=== PATIENT | male | born 1955 | race Caucasian/White ===

== ENCOUNTER 2023-10-17 13:13 | Observation (INO) ==
[2023-10-17 13:39] LABS: Basophils # (auto) 0.02 K/uL (0.00-0.20); Basophils % (auto) 0.2 %; Eosinophils # (auto) 0.06 K/uL (0.00-0.50); Eosinophils % (auto) 0.5 %; Hematocrit (blood only) 45.3 % (42.0-52.0); Hemoglobin 15.6 g/dl (14.0-18.0); Immature Granulocytes # (auto) 0.04 K/uL (0.01-0.20); Immature Granulocytes % (auto) 0.3 %; Lymphocytes # (auto) 0.94 K/uL (1.20-3.40); Lymphocytes % (auto) 7.9 %; Mean Corpuscular Hemoglobin 30.1 pg (25.0-34.0); Mean Corpuscular Hgb Conc 34.4 g/dL (32.0-36.0); Mean Corpuscular Volume 87.3 fL (80.0-100.0); Mean Platelet Volume 9.9 fL (9.4-12.4); Monocytes # (auto) 0.69 K/uL (0.11-0.59); Monocytes % (auto) 5.8 %; Neutrophils # (auto) 10.09 K/uL (1.40-6.50); Neutrophils % (auto) 85.3 %; Platelet Count 244 K/uL (130-400); RDW Coefficient of Variation 12.8 % (11.5-14.5); RDW Standard Deviation 40.5 fL (36.4-46.3); Red Blood Count 5.19 M/uL (4.70-6.10); White Blood Count 11.84 K/ul (4.8-10.8)
--- NOTE | 2023-10-17 13:43 | Emergency Department Note ---
Impression & Plan Atrial flutter, Chest pain, rule out acute myocardial infarction, Hypertension, S/P ablation of atrial fibrillation ED Provider Note NAME: KAIN CASEY AGE: 68 SEX: M : 1955 ARRIVES VIA: Walk-In INFORMANT: Patient ED PROVIDER(S): Sb Lopez DO CHIEF COMPLAINT: shortness of breath HPI: Patient is a 68-year-old male who presents to the ER for shortness of breath. Symptoms started yesterday and he notes he has a past medical history of A-fib with a previous ablation back in 2019. Patient notes that he has no chest pain but does have exertional dyspnea. Denies any belly pain, nausea, vomiting, or diarrhea. No dysuria, urgency, or frequency. He notes he struggles with walking any distance now and he has to stop to catch his breath with anything more than about 20 feet. ADDITIONAL HISTORY OBTAINED: Per HPI Chronic Medical/Social Conditions Affecting Care: Per HPI PAST MEDICAL HISTORY:See Below PAST SURGICAL HISTORY:See Below FAMILY HISTORY:See Below SOCIAL HISTORY:See Below HOME MEDICATIONS:See Below ALLERGIES:See Below VITALS:See Below PHYSICAL EXAMINATION: GENERAL: Sitting up in bed, alert, well appearing, well nourished, no distress, non-toxic EYE EXAM: normal conjunctiva. OROPHARYNX: no exudate, no erythema, lips, buccal mucosa, and tongue normal and mucous membranes are moist NECK: supple, no nuchal rigidity, no adenopathy, non-tender LUNGS: Clear to auscultation. Normal chest wall mechanics HEART: no murmurs, S1 normal and S2 normal ABDOMEN: abdomen soft, non-tender, normo-active bowel sounds, no masses, no rebound or guarding. UPPER EXTREMITIES: upper extremities are grossly normal. LOWER EXTREMITIES: No pitting edema. NEURO EXAM: Normal sensorium, cranial nerves II-XII grossly intact, normal speech, no gross weakness of arms, no gross weakness of legs. MEDICAL DECISION MAKING: Patient is a 68-year-old male who presents ER for the above-stated complaint. IV was established blood work was obtained. Labs show mild leukocytosis of 11.8. No significant anemia. INR unremarkable. BMP with mild hypokalemia at 3.4. LFTs bilirubin was unremarkable. Troponin was negative. Chest x-ray was clean. Patient last ate at 9 AM and drink just prior to coming in he had a sip of water. He has no other medical problems other than the A-fib and flutter and previous ablation and hypertension. With the intermittent chest pain he was given aspirin and nitro. He was admitted to the hospitalist. Patient was seen by cardiology Dr. Barbour who requested IR assistance for sedation for cardioversion as patient has been anticoagulated appropriately and would prefer to be shocked. I discussed the risk and benefits at bedside with the patient and he was agreeable to sedation. Patient was given 10 of etomidate and sedation was for a total of 11 minutes. He was shocked twice during this. He remained on nonrebreather. He was never apneic or hypoxic. He after the first shock converted to A-fib. He was then shocked again and there is no conversion to sinus rhythm. He was mated to the hospitalist for further workup. Consults/Care Managements Discussions: Per [facility] Triage Nursing notes reviewed. Limited review of prior medical records performed Vital Signs: reviewed and remarkable for tachy Differential diagnosis: Cardiac ischemia, aortic dissection, pulmonary embolism, pneumothorax, pneumonia, pericarditis, myocarditis, esophageal rupture, GERD, cholecystitis, pancreatitis, musculoskeletal, as well as other pathologies. ER treatment provided: See below Diagnostics interpreted by me include EKG and cardiac monitoring as listed below: -Cardiac Monitoring: An order was placed for continuous cardiac monitoring. The monitor shows a rate of 102 with AFIB rhythm. -ECG: Atrial flutter rate of [address] wave changes QTc 457 EKG #2 Atrial flutter rate [address] wave changes in the inferior and lateral leads QTc 486 EKG #3 Atrial flutter variable block rate of 79 Normal axis No PVCs Nonspecific ST wave changes -Laboratory studies:Interpreted by me as stated above in MDM and shown below. Imaging studies: Xrays: As interpreted by me: Portable AP upright 1 view of the chest shows no focal infiltrate CTs show: none Procedures:EM PROCEDURE NOTE- PROCEDURAL SEDATION Sedation Level: Moderate PRIOR TO THE PROCEDURE THE FOLLOWING INFORMATION WAS VERIFIED: Procedure/Indication: Cardioversion Verify Correct Patient: Yes Verify Correct Site: Yes Verify Correct Procedure: Yes Patient has been NPO for 8 hours Airway Assessment: Normal anatomy ASA Physical Status: 2 Procedure sedation was discussed with the patient. Risks and benefits were explained with the possible risks including but not limited to hypotension, allergic reaction, vomiting, pneumonia, loss of respiratory effort, cardiac arrest, and emergence reaction. PROCEDURE NOTE: Preparation for the sedation procedure included: air marshal, IV access, pulse oxymetry, ETCO2 monitor, oxygen, suction and ambu bag. Sedation was accomplished using etomidate 10 mg IV. I provided anesthesia care for this patient for 11 minutes. Tugboat Dispatcher/Stonecutter Assistant: Sb Lopez DO. Complication(s) during the procedure: None Mental status post procedure: Response to verbal stimuli - Appropriate Disposition See nurses record for monitoring/vital signs Alert prior to discharge Critical Care: None Past Med/Surg History Problem List (Updated 10/17/23 @ 19:00 by Sb Lopez DO) S/P ablation of atrial fibrillation (Acute) Hypertension (Acute) Atypical chest pain Chest pain, rule out acute myocardial infarction (Acute) Atrial flutter (Acute) Medical History History of atrial fibrillation Social History Smoking Status: Never smoker Hx Alcohol Use: Yes Alcohol type: beer Hx Substance Use: No Preferred Language: Portuguese Collar Sewer Required: No Beliefs That Will Affect Care: None Current Living Situation: Spouse Feels Safe at Home: Yes Assistive Devices: CPAP Allergies Allergies Allergy/AdvReac Type Severity Reaction Status Date / Time codeine AdvReac Nausea Verified 10/17/23 15:46 lisinopril AdvReac Cough Verified 10/17/23 15:46 Home Meds Home Medications Medication Instructions Recorded Confirmed apixaban 5 mg tablet (Eliquis) 5 mg PO BID 10/17/23 10/17/23 chlorthalidone 25 mg tablet 25 mg PO QAM 10/17/23 10/17/23 losartan 100 mg tablet 100 mg PO HS 10/17/23 10/17/23 magnesium 250 mg tablet 250 mg PO HS 10/17/23 10/17/23 rdqhxhjwsqug-nmmxpcbv-iwabjl tablet 1 tab PO DAILY 10/17/23 10/17/23 nifedipine 30 mg tablet,extended 30 mg PO DAILY 10/17/23 10/17/23 release omega 5-dzj-pod-fish oil 1,200 mg 1 cap PO HS 10/17/23 10/17/23 (144 mg-216 mg) capsule (Fish Oil) rosuvastatin 5 mg tablet 5 mg PO HS 10/17/23 10/17/23 sertraline 50 mg tablet 50 mg PO HS 10/17/23 10/17/23 valacyclovir 1 gram tablet 1,000 mg PO TID PRN Cold Sores 10/17/23 10/17/23 Results & Data (ED) Vital Signs Vital Signs - 24 hr 10/17/23 13:15 10/17/23 13:42 10/17/23 14:36 Temperature 36.4 C L Temperature Source Temporal Artery Scan Pulse Rate 108 H 92 H 84 Pulse Rate from SpO2 Sensor 81 Respiratory Rate 20 16 Respiratory Effort / Characteristics Spontaneous Labored Respiratory Depth Normal Respiratory Pattern Regular Blood Pressure 112/77 125/91 Blood Pressure Mean 88 102 Pulse Oximetry 99 97 Oxygen Delivery Method Room Air Sepsis Recent Fever Within 48 Hours No Sepsis New/Unexplained Change in Mental Status N/A Sepsis Action Taken by Nursing No Action Required Laboratory Data 10/17/23 13:23 10/17/23 13:23 Lab Results 10/17/23 Range/Units 13:23 WBC 11.84 H (4.8-10.8) K/ul RBC 5.19 (4.70-6.10) M/uL Hgb 15.6 (14.0-18.0) g/dl Hct 45.3 (42.0-52.0) % MCV 87.3 (80.0-100.0) fL MCH 30.1 (25.0-34.0) pg MCHC 34.4 (32.0-36.0) g/dL RDW Std Deviation 40.5 (36.4-46.3) fL RDW Coeff of Daniel 12.8 (11.5-14.5) % Plt Count 244 (130-400) K/uL MPV 9.9 (9.4-12.4) fL Immature Gran % (Auto) 0.3 % Neut % (Auto) 85.3 % Lymph % (Auto) 7.9 % [place] % (Auto) 5.8 % Eos % (Auto) 0.5 % Baso % (Auto) 0.2 % Neut # (Auto) 10.09 H (1.40-6.50) K/uL Lymph # (Auto) 0.94 L (1.20-3.40) K/uL [place] # (Auto) 0.69 H (0.11-0.59) K/uL Eos # (Auto) 0.06 (0.00-0.50) K/uL Baso # (Auto) 0.02 (0.00-0.20) K/uL Immature Gran # (Auto) 0.04 (0.01-0.20) K/uL PT 11.7 (9.0-12.0) Seconds INR 1.1 (0.9-1.1) APTT 28 (21-31) Seconds PTT Ratio 1.0 Sodium 137 (136-145) mmol/L Potassium 3.4 L (3.5-5.1) mmol/L Chloride 101 (98-107) mmol/L Carbon Dioxide 28 (21-32) mmol/L Anion Gap 8 (3-11) BUN 24 H (6-23) mg/dl Creatinine 1.25 (0.6-1.4) mg/dl Est Cr Clr Drug Dosing 81.4 ml/min Est GFR ( Amer) 68.6 ml/min Est GFR (Non-Af Amer) 59.2 ml/min BUN/Creatinine Ratio 19.2 (10-20) Glucose 166 H (70-99(Fasting)) mg/dl Calcium 9.3 (8.6-10.3) mg/dl Magnesium 2.0 (1.7-2.4) mg/dl Total Bilirubin 0.7 (0.2-1.0) mg/dl AST 19 (13-39) U/L ALT 23 (7-52) U/L Alkaline Phosphatase 44 (34-104) U/L Troponin I High Sens 3.1 (0-20) pg/ml Total Protein 7.4 (6.0-8.3) gm/dl Albumin 4.7 (3.4-5.0) gm/dl Globulin 2.7 (2.5-4.0) gm/dl Albumin/Globulin Ratio 1.7 (0.9-2) Administered Medications Discontinued Medications Aspirin (Aspirin Chew 324 Mg) 324 mg PO NOW STA Stop: 10/17/23 14:35 Last Admin: 10/17/23 14:37 Dose: 324 mg Documented By: Etomidate (Etomidate 2 Mg/Ml 20 Ml Vial) Confirm Administered Dose 40 mg IV .STK-MED ONE Stop: 10/17/23 17:09 Last Admin: 10/17/23 18:49 Dose: Not Given Documented By: PURNIMA Sodium Chloride (Nss) 1,000 mls @ 999 mls/hr IV .Q1H1M ONE Stop: 10/17/23 14:43 Last Infusion: 10/17/23 15:10 Dose: Infused Documented By: Admin: 10/17/23 13:52 Dose: 999 mls/hr Documented By: SONY Potassium Chloride (K [place] / Wtr) 10 meq in 100 mls @ 100 mls/hr IV Q1H [place] Stop: 10/17/23 18:14 Last Admin: 10/17/23 18:49 Dose: 100 mls/hr Documented By: Infusion: 10/17/23 18:49 Dose: Infused Documented By: Infusion: 10/17/23 17:16 Dose: 0 mls/hr Documented By: Admin: 10/17/23 16:20 Dose: 100 mls/hr Documented By: YENIFER Miscellaneous Information (Patient's Allergy Info Needs Entered) 1 each N/A NOW STA Stop: 10/17/23 14:50 Last Admin: 10/17/23 15:47 Dose: 1 each Documented By: YENIFER Nitroglycerin (Nitroglycerin Sl 0.4 Mg/Tab Tab) 0.4 mg SL NOW STA Stop: 10/17/23 14:35 Last Admin: 10/17/23 14:39 Dose: 0.4 mg Documented By: Potassium Chloride (Potassium Chloride Crtab 20 Meq Tabcr) 20 meq PO NOW STA Stop: 10/17/23 14:47 Last Admin: 10/17/23 15:34 Dose: Not Given Documented By: YENIFER Imaging Data Radiologist's Impression: Chest X-Ray 10/17/23 13:21 XR chest 1V portable CLINICAL HISTORY: Chest pain, nonspecific COMPARISON STUDY: No previous studies for comparison. FINDINGS: Lung volumes are normal. Lungs are clear. There is no pneumothorax or pleural effusion. Mild cardiomegaly. Mediastinal contours are normal. There is no evidence for pulmonary edema. IMPRESSION: No acute cardiopulmonary findings. Mild cardiomegaly. ACT 112: Negative or not required by law. Electronically signed by: Shorty Fritz M.D. 10/17/2023 2:32 PM Discharge Plan Visit Data Chief Complaint: Cardiac Assessment Stated Complaint: LIGHTHEADED, SOB, HIGH HR, NAUSEA ED Provider: Sb Lopez Discharge Problem: Atrial flutter, Chest pain, rule out acute myocardial infarction, Hypertension, S/P ablation of atrial fibrillation Patient Disposition: Admitted As Inpatient Discharge Instructions Interventions: ED Discharge Assessment Last Done: 10/17/23 17:59 Discharge Problem: Atrial flutter Qualifiers: Atrial flutter type: unspecified Qualified Code(s): I48.92 - Unspecified atrial flutter
[2023-10-17 13:48] LABS: INR 1.1 (0.9-1.1); Partial Thromboplastin Time 28 Seconds (21-31); Prothrombin Time 11.7 Seconds (9.0-12.0)
[2023-10-17] MEDS: SODIUM CHLORIDE 0.9% 1,000 ML IV ONE (13:52)
[2023-10-17 13:55] LABS: Albumin Globulin Ratio 1.7 (0.9-2); Albumin Level 4.7 gm/dl (3.4-5.0); BUN Creatinine Ratio 19.2 (10-20); Bilirubin,Total 0.7 mg/dl (0.2-1.0); Calcium 9.3 mg/dl (8.6-10.3); Creatinine Clr Calc Pharmacy 81.4 ml/min; Est GFR (African American) 68.6 ml/min; Est GFR (Non-African American) 59.2 ml/min; Globulin 2.7 gm/dl (2.5-4.0); Potassium 3.4 mmol/L (3.5-5.1); Total Protein 7.4 gm/dl (6.0-8.3)
[2023-10-17 14:03] LABS: Troponin I High Sensitivity 3.1 pg/ml (0-20)
--- NOTE | 2023-10-17 14:34 | XRay Report ---
XR chest 1V portable CLINICAL HISTORY: Chest pain, nonspecific COMPARISON STUDY: No previous studies for comparison. FINDINGS: Lung volumes are normal. Lungs are clear. There is no pneumothorax or pleural effusion. Mil d cardiomegaly. Mediastinal contours are normal. There is no evidence for pulmonary edema. IMPRESSION: No acute cardiopulmonary findings. Mild cardiomegaly. ACT 112: Negative or not required by law. Electronically signed by: Shorty Fritz M.D. 10/17/2023 2:32 PM
[2023-10-17] MEDS: ASPIRIN CHEW 324 MG PO STA (14:37)
[2023-10-17] MEDS: NITROGLYCERIN SL 0.4 MG/TAB TAB SL STA (14:39)
--- NOTE | 2023-10-17 15:14 | History & Physical Report ---
Date of Service October 17, 2023 Assessment & Plan (1) Atrial flutter: Plan: Appears well rate controlled by significantly symptomatic (see below for possible coronary artery disease) Already on anticoagulation for > 4 weeks consistently therefore discussed care with Dr Barbour who will discuss cardioversion with him Last ate 9am, last drank @ midday TTE Aim K > 4, Mg > 2 Consult cardiology (2) Chest pain, rule out acute myocardial infarction: Plan: No CAD history Chest pain most like due to atrial flutter rhythm even though well rate controlled However only occurred at rest since he came to the ER and relieved with nitroglycerin therefore will need to bring patient over night for observation TTE Trend troponins (3) History of atrial fibrillation: Plan HTN - continue losartan, chlorthalidone and nifedipine Hyperlipidemia - continue rosuvastatin Paroxysmal atrial fibrillation - continue Eliquis VTE Prophylaxis - Eliquis Diet - NPO pending cardioversion decision Disposition - observation to PCU Admission and Anticipated Discharge Date Admission Date: October 17, 2023 History of Present Illness Chief Complaint: Chest pressure, shortness of breath on exertion Primary Care Provider: NO PCP [place] Crooks is a 68 year old male with history of atrial fibrillation who presents to the ER with shortness of breath on exertion and chest pressure. Symptoms started yesterday with shortness of breath on exertion. Today he started getting mild chest pressure on exertion with associated increased heart rate therefore decided to come to the ER. While in the ER he started getting some chest pressure at rest without radiation, mild, substernal, no associated diaphoresis/nausea/shortness of breath at rest. EKG in the ER showed atrial flutter and despite good rate control appears to be symptomatic. He has a notable history of atrial fibrillation where he was asymptomatic. Successful ablation occurred in 2020 and he does not think he has been in a. fib since then. He has remained on Eliquis indefinitely and not missed any doses in the last 4 weeks. Allergies Allergy/AdvReac Type Severity Reaction Status Date / Time codeine AdvReac Nausea Verified 10/17/23 15:46 lisinopril AdvReac Cough Verified 10/17/23 15:46 Home Medications Medication Instructions Recorded Confirmed Type apixaban 5 mg tablet (Eliquis) 5 mg PO BID 10/17/23 10/17/23 History chlorthalidone 25 mg tablet 25 mg PO QAM 10/17/23 10/17/23 History losartan 100 mg tablet 100 mg PO HS 10/17/23 10/17/23 History magnesium 250 mg tablet 250 mg PO HS 10/17/23 10/17/23 History sdhnfpfwugnr-kibzeoda-xlozvv tablet 1 tab PO DAILY 10/17/23 10/17/23 History nifedipine 30 mg tablet,extended 30 mg PO DAILY 10/17/23 10/17/23 History release omega 2-cnc-rtz-fish oil 1,200 mg 1 cap PO HS 10/17/23 10/17/23 History (144 mg-216 mg) capsule (Fish Oil) rosuvastatin 5 mg tablet 5 mg PO HS 10/17/23 10/17/23 History sertraline 50 mg tablet 50 mg PO HS 10/17/23 10/17/23 History valacyclovir 1 gram tablet 1,000 mg PO TID PRN Cold Sores 10/17/23 10/17/23 History Past Med/Surg History Problem List (Updated 10/17/23 @ 19:00 by Sb Lopez DO) S/P ablation of atrial fibrillation (Acute) Hypertension (Acute) Atypical chest pain Chest pain, rule out acute myocardial infarction (Acute) Atrial flutter (Acute) Medical History History of atrial fibrillation Social History Smoking Status: Never smoker Hx Alcohol Use: Yes Alcohol type: beer Hx Substance Use: No Preferred Language: Barbadian Formulation Chemist Required: No Beliefs That Will Affect Care: None Current Living Situation: Spouse Feels Safe at Home: Yes Assistive Devices: CPAP Review of Systems Review of Systems: All systems reviewed & are unremarkable except as noted in HPI & below Physical Exam Constitutional: WD/WN, vitals as above Eyes: + anicteric sclerae; normal pupil size ENMT: external ear and nose normal, oropharynx normal Respiratory: normal respiratory effort, lungs clear to auscultation Cardiovascular: Rate/Rhythm: regular rhythm and + tachycardic Heart Sounds: no murmur Extremities: normal capillary refill; no calf tenderness and no pedal edema Gastrointestinal (Abdomen): normal bowel sounds, soft, nontender, no hepatosplenomegaly Musculoskeletal: no cyanosis or clubbing, extremities motor strength 5/5 Skin: no rashes, warm and dry Neurologic: moves all extremities and awake; not confused Psychiatric: A+Ox3, euthymic affect Results & Data Results & Data Vital Signs (Past 12 Hours) Vital Signs Temp Pulse Resp BP Pulse Ox O2 Del Method 10/17/23 14:36 84 16 125/91 97 10/17/23 13:42 92 H 10/17/23 13:15 36.4 C L 108 H 20 112/77 99 Room Air Laboratory Results Abnormal lab results 10/17/23 Range/Units 13:23 WBC 11.84 H (4.8-10.8) K/ul Neut # (Auto) 10.09 H (1.40-6.50) K/uL Lymph # (Auto) 0.94 L (1.20-3.40) K/uL [place] # (Auto) 0.69 H (0.11-0.59) K/uL Potassium 3.4 L (3.5-5.1) mmol/L BUN 24 H (6-23) mg/dl Glucose 166 H (70-99(Fasting)) mg/dl Diagnostic Findings XR chest 1V portable CLINICAL HISTORY: Chest pain, nonspecific COMPARISON STUDY: No previous studies for comparison. FINDINGS: Lung volumes are normal. Lungs are clear. There is no pneumothorax or pleural effusion. Mild cardiomegaly. Mediastinal contours are normal. There is no evidence for pulmonary edema. IMPRESSION: No acute cardiopulmonary findings. Mild cardiomegaly. Medications Administered ER Medications Given: NSS 1L bolus Aspirin 324mg PO Nitroglycerin 0.4mg SL ECG Rate (beats per minute): 95 Rhythm: atrial flutter and AV dissociation Findings: + RBBB (incomplete) Comparison ECG Date: no prior available Code Status & VTE Plan Code Status Full VTE Prophylaxis Plan VTE Prophylaxis will be ordered: Yes PG Care Time/CCT Total # of Minutes Spent Total Time Spent with Patient: Total time spent is greater than 50% in coordination of care (as documented) at patient's floor/unit and/or counseling patient: Coding Level of Care Code 25635 INT INP/OBS CARE 3/75MIN Diagnoses Atypical atrial flutter I48.4 Atrial flutter type: atypical Chest pain, rule out acute myocardial infarction R07.9 History of atrial fibrillation Z86.79 (1) Atrial flutter Atrial flutter type: atypical Qualified Code(s): I48.4 - Atypical atrial flutter
[2023-10-17] MEDS: POTASSIUM CHLORIDE CRTAB 20 MEQ TABCR PO STA (15:34)
[2023-10-17] MEDS: Patient's ALLERGY Info needs ENTERED STA (15:47)
--- NOTE | 2023-10-17 15:54 | Cardiology Consultation ---
Date of Consultation October 17, 2023 Assessment & Plan (1) Atrial flutter: (2) Atypical chest pain: (3) History of atrial fibrillation: (4) Hypertension: (5) S/P ablation of atrial fibrillation: Plan ASSESSMENT/PLAN: 1. Atrial flutter appears to be symptomatic and symptoms correlate with change of his heart rate on his smart phone. Diagnosis discussed with him. Discussed potential treatment strategies. Given that he is symptomatic, recommend that we try to reestablish sinus rhythm. Discussed cardioversion. Risk and benefits discussed in detail. He would like to proceed. Emergency department provider, Dr. Lopez, was willing to provide sedation. He has been on therapeutic anticoagulation therapy without interruption for at least 4 weeks. 2. Atrial fibrillation history s/p ablation (2020): He reports that he was completely asymptomatic with A-fib in the past. Has continued with anticoagulation therapy. Has not been on rate controlling medications given bradycardia in the past. 3. Hypertension: Blood pressure acceptable. Continue home medications. 4. Chest pain: Atypical and that it occurred at rest despite recent activity. Normal LV systolic function on preliminary echo interpretation. Recommend serial troponin levels, negative x 2 thus far but the first was before his chest discomfort occurred. Chest pain may be due to the atrial flutter itself. Continue to monitor for now. Repeat ECG. 5. Disposition: Cardioversion is being planned for this evening. Serial troponins given chest discomfort that responded to nitroglycerin. Close follow- up with his primary canvas cutter machine with [facility]. Patient care discussed with Dr. Cheng of the admitting hospitalist service and Dr. Lopez of the ER. Highly complex medical issues. Addendum: Cardioversion completed and atrial flutter converted to atrial fibrillation. Attempted cardioversion for atrial fibrillation was not successful. Reassess symptoms overnight and tomorrow with further plans pending symptoms/heart rate. N.p.o. after midnight in case further procedures to be done tomorrow. History of Present Illness Reason for Consultation: chest pain and atrial flutter Requesting Physician: Dr. Cheng Attending Physician: Dr. Cheng History of Present Illness Mr. Crooks is a very pleasant 68-year-old gentleman with a history significant for atrial fibrillation s/p afib ablation (July 2020 [facility]) and hypertension. He presented to the ER on 10/17/2023 with lightheadedness, dizziness, nausea, and significantly reduced exercise tolerance with inclines. He is at his camp at [facility] and noted yesterday that his heart rate was 113 bpm on his smart watch. His heart rate is typically in the 60s. His heart rate remained elevated while in bed but improved. He was asymptomatic at that time until today when he had the symptoms described above while hiking. He presented to the ER and was noted to be in atrial flutter with reasonable ventricular rates. While in bed, he had a substernal chest pressure and then a chest pressure that went from left to right across his chest. It resolved with nitroglycerin x 1 and 324 mg of aspirin. He has not had chest discomfort like that prior and denies any exertional chest discomfort. He had a cardiac catheterization in 2008 with minimal CAD, which she described as 10% blockage. In 2019, he was diagnosed with atrial fibrillation but was completely asymptomatic. It was detected by his [facility] canvas cutter machine, Dr. Leah Nair (office [phone]). He recalls having cardioversion approximately 7 times but states that cardioversions had been unsuccessful. He was on Tikosyn for some time and then eventually underwent ablation in July 2020. He has remained on Eliquis indefinitely and has not missed any doses in the past 4 weeks. He states that his heart rate is typically on the lower end and therefore has not been on any rate controlling medications. He denies stroke, diabetes, heart failure. He denies syncope, edema, or bleeding such as melena, hematochezia, or hematuria. Review of systems: As above. Review of systems otherwise negative/unremarkable. Family history: Father had CAD in his 60s, atrial fibrillation and stroke. Mother had CAD and at 64. Brother had A-fib and stroke x 2. Social history: Denies tobacco or drug abuse. Rare alcohol. and lives with his in [place] and have at home in [facility], to be near grandchildren. They have 2 daughters. 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 His was present at the bedside. Allergies Allergy/AdvReac Type Severity Reaction Status Date / Time codeine AdvReac Nausea Verified 10/17/23 15:46 lisinopril AdvReac Cough Verified 10/17/23 15:46 Home Medications Medication Instructions Recorded Confirmed Type apixaban 5 mg tablet (Eliquis) 5 mg PO BID 10/17/23 10/17/23 History chlorthalidone 25 mg tablet 25 mg PO QAM 10/17/23 10/17/23 History losartan 100 mg tablet 100 mg PO HS 10/17/23 10/17/23 History magnesium 250 mg tablet 250 mg PO HS 10/17/23 10/17/23 History zvubrtnwjvmt-uliiqxoj-cpgcer tablet 1 tab PO DAILY 10/17/23 10/17/23 History nifedipine 30 mg tablet,extended 30 mg PO DAILY 10/17/23 10/17/23 History release omega 8-bor-wxy-fish oil 1,200 mg 1 cap PO HS 10/17/23 10/17/23 History (144 mg-216 mg) capsule (Fish Oil) rosuvastatin 5 mg tablet 5 mg PO HS 10/17/23 10/17/23 History sertraline 50 mg tablet 50 mg PO HS 10/17/23 10/17/23 History valacyclovir 1 gram tablet 1,000 mg PO TID PRN Cold Sores 10/17/23 10/17/23 History Problem List S/P ablation of atrial fibrillation Hypertension Atypical chest pain Chest pain, rule out acute myocardial infarction Atrial flutter Patient History Medical History History of atrial fibrillation Social History Smoking Status: Never smoker Hx Substance Use: No Preferred Language: Cymro Feels Safe at Home: Yes Physical Exam Physical Exam: Gen.: No acute distress. Alert and oriented. HEENT: Anicteric sclera. Neck: No JVD. No bruits. Normal carotid upstrokes bilaterally. Cardiac: Irregularly irregular. Normal rate. Normal S1-S2. No murmurs, rubs, or gallops. Pulmonary: Clear to auscultation bilaterally without wheezes, rales, or rhonchi. Abdomen: Soft, nontender, nondistended, with normoactive bowel sounds. No bruits noted. Extremities: 2+ radial pulses bilaterally. 2+ posterior tibialis pulses bilaterally. No edema or cyanosis. Psychiatric: Affect appears appropriate. Chest: Nontender to palpation. Results & Data Vital Signs (Past 12 Hours) Vital Signs Temp Pulse Resp BP Pulse Ox O2 Del Method 10/17/23 14:36 84 16 125/91 97 10/17/23 13:42 92 H 10/17/23 13:15 36.4 C L 108 H 20 112/77 99 Room Air Laboratory Results Laboratory Results - last 24 hr 10/17/23 13:23 WBC 11.84 H RBC 5.19 Hgb 15.6 Hct 45.3 MCV 87.3 MCH 30.1 MCHC 34.4 RDW Std Deviation 40.5 RDW Coeff of Daniel 12.8 Plt Count 244 MPV 9.9 Immature Gran % (Auto) 0.3 Neut % (Auto) 85.3 Lymph % (Auto) 7.9 [place] % (Auto) 5.8 Eos % (Auto) 0.5 Baso % (Auto) 0.2 Neut # (Auto) 10.09 H Lymph # (Auto) 0.94 L [place] # (Auto) 0.69 H Eos # (Auto) 0.06 Baso # (Auto) 0.02 Immature Gran # (Auto) 0.04 PT 11.7 INR 1.1 APTT 28 PTT Ratio 1.0 Sodium 137 Potassium 3.4 L Chloride 101 Carbon Dioxide 28 Anion Gap 8 BUN 24 H Creatinine 1.25 Est Cr Clr Drug Dosing 81.4 Est GFR ( Amer) 68.6 Est GFR (Non-Af Amer) 59.2 BUN/Creatinine Ratio 19.2 Glucose 166 H Calcium 9.3 Magnesium 2.0 Total Bilirubin 0.7 AST 19 ALT 23 Alkaline Phosphatase 44 Troponin I High Sens 3.1 Total Protein 7.4 Albumin 4.7 Globulin 2.7 Albumin/Globulin Ratio 1.7 Diagnostic Findings Labs reviewed and notable for normal high-sensitivity troponin x 1, mild hypokalemia, mildly abnormal renal function, normal magnesium, normal transaminase levels, mild leukocytosis, normal hemoglobin. ECG personally reviewed: ECG 10/17/2023 at 1323: Atrial flutter 95 bpm. Incomplete RBBB. Nonspecific ST/T wave abnormality. ECG 10/17/2023 at 1419: Atrial flutter 84 bpm. Incomplete RBBB. Nonspecific ST abnormality. Chest x-ray 10/17/2023: No acute cardiopulmonary findings per radiology. Preliminary echo review from 10/17/2023: Normal LV systolic function. Formal review to follow. Medications Administered Current Inpatient Medications Potassium Chloride (K [place] / Wtr) 10 meq in 100 mls @ 100 mls/hr IV Q1H [place] Stop: 10/17/23 17:44 PG Care Time/CCT Total # of Minutes Spent Total Time Spent with Patient: Total time spent is greater than 50% in coordination of care (as documented) at patient's floor/unit and/or counseling patient: Coding Level of Care Code 13204 INT INP/OBS CARE 3/75MIN Diagnoses Atypical atrial flutter I48.4 Atrial flutter type: atypical Atypical chest pain R07.89 History of atrial fibrillation Z86.79 Hypertension I10 S/P ablation of atrial fibrillation Z98.890; Z86.79 (1) Atrial flutter Atrial flutter type: atypical Qualified Code(s): I48.4 - Atypical atrial flutter
[2023-10-17] MEDS: POTASSIUM CHLORIDE / WTR 10 MEQ/100 ML PLCT IV SCH (16:20)
--- NOTE | 2023-10-17 18:16 | Cardioversion ---
Date of Service October 17, 2023 PG Electrical Cardioversion Rp Electrical Cardioversion Report Procedure: DC cardioversion Indication: Symptomatic atrial flutter Anticoagulation: Therapeutic Eliquis for at least 4 weeks without interruption Antiarrhythmic therapy: None Informed consent: Obtained Sedation: Provided by Dr. Lopez of the emergency department Timeout: Performed Procedural details: Once sufficiently sedated, 70 J were delivered in a synchronized fashion which converted atrial flutter to atrial fibrillation with normal ventricular rate. While still sedated, 200 J were delivered in a synchronized fashion, but atrial fibrillation remained. Telemetry waveform b ecame more difficult to interpret and rather than repeat cardioversion, decision was made to end the procedure and reevaluate. He tolerated the procedure well without known complication at the time of this note. Plan: 1. Atrial fibrillation confirmed on ECG. He was asymptomatic when waking up from sedation. 2. Continue Eliquis without interruption for at least 4 weeks although indefinite anticoagulation appears to be indicated. 3. Reassess for symptoms while in atrial fibrillation to determine next course of action. Coding Level of Care Code 68314 CARDIOVERSION, ELECTIVE Additional Codes Electrical Cardioversion Report ([id number])
[2023-10-17] MEDS: ETOMIDATE 2 MG/ML 20 ML VIAL IV ONE (18:49)
--- NOTE | 2023-10-17 19:02 | Emergency Department Note ---
Pre Sedation Assessment Vital Signs Temp Pulse Resp BP Pulse Ox O2 Del Method 10/17/23 14:36 84 16 125/91 97 10/17/23 13:42 92 H 10/17/23 13:15 36.4 C L 108 H 20 112/77 99 Room Air Cardiovascular + S1 normal and + S2 normal Respiratory normal respiratory effort, lungs clear to auscultation Pre-Sedation Airway Assessment Smoking Status: Never smoker Hx Sleep Apnea: Yes Short, Thick Neck: No Thyromental Distance: > or= 3.5 Finger Breadths Oral Cavity: + WNL Mallampati Class: II ASA: ASA2 NPO Status Date of Last Intake of Fluids: 10/17/23 Time of Last Intake of Fluids: 13:00 Date of Last Intake of Solid Food: 10/17/23 Time of Last Intake of Solid Foods: 09:00 Procedure Planning Contraindications for Sedation: none Notes The planned sedation has been discussed with the patient. Informed Consent was obtained. I have identified the patient, determined the appropriateness of sedation and have assessed the patient immediately prior to the procedure. All medicine(s) and interventions are by my order.
--- NOTE | 2023-10-17 19:02 | Emergency Department Note ---
Post Sedation Assessment Vital Signs Temp Pulse Resp BP Pulse Ox O2 Del Method 10/17/23 14:36 84 16 125/91 97 10/17/23 13:42 92 H 10/17/23 13:15 36.4 C L 108 H 20 112/77 99 Room Air Recovery Score Activity: Moves 4 extremities Respiration: Deep Breath/Cough Circulation: +/-20% PreAnes Value Consciousness: Fully Awake Oxygen Saturation: > 92% On Room Air Post Anesthesia Score: 10 Discharge Sedation Level of Care: Fast Track Phase II Post Sedation Plan On clinical assessment, the patient appears to have tolerated the sedation without complications. Patient is recovering as anticipated. Patient will continue to be monitored by nursing and may be discharged when sedation discharge criteria are met per below protocol. Upon Completions of procedure up to 15 minutes continue every 5 minute vital signs and the P.A.R. score; then discharge to a Phase I or Fast Track to Phase II per the following guidelines: * Discharge Patient to appropriate Phase II area if PAR is 8 or greater or return to pre- procedure baseline. The post - procedure orders will be as directed. * If PAR score is less than 8 or not return to pre-procedure baseline then patient will follow Phase I monitoring till PAR is reached for Phase II. The Phase I may be done in procedure room or may call to secure a Phase I area. * If naloxone or flumazenil are used for reversal, hold in Phase I for continued monitoring from when last reversal dose was given for a minimum of 60 minutes or longer pending the nurse and/or physician discretion of patient condition before discharge to Phase II. Please call the Sedation Physician to re-evaluate and complete post-note for discharge to Phase II area. Do NOT discharge from procedure sedation or Phase 1 until post- sedation evaluation note is complete by procedure /sedation MD Sedation Discharge Instructions to be given to the patient at discharge to home. Sedation Data Sedation Times Sedation Start Date: 10/17/23 Sedation Start Time: 17:23 Sedation End Date: 10/17/23 Sedation End Time: 17:34 Total Sedation Time: 11 Procedure Times Procedure Start Time:: 17:24
[2023-10-17] MEDS: APIXABAN 5 MG TABLET PO SCH (21:08)
[2023-10-17] MEDS: SERTRALINE HCL 50 MG TABLET PO SCH (21:08)
[2023-10-17] MEDS: MAGNESIUM OXIDE 400 MG TAB PO SCH (21:08)
[2023-10-17] MEDS: ROSUVASTATIN CALCIUM 5 MG TAB PO SCH (21:08)
[2023-10-17] MEDS: LOSARTAN POTASSIUM 50 MG TAB PO SCH (21:08)
--- NOTE | 2023-10-17 22:03 | XCELERA ---
[id number] [id number]
[2023-10-18 06:29] LABS: Basophils # (auto) 0.01 K/uL (0.00-0.20); Basophils % (auto) 0.1 %; Eosinophils # (auto) 0.16 K/uL (0.00-0.50); Eosinophils % (auto) 2.2 %; Hematocrit (blood only) 39.8 % (42.0-52.0); Hemoglobin 13.8 g/dl (14.0-18.0); Immature Granulocytes # (auto) 0.02 K/uL (0.01-0.20); Immature Granulocytes % (auto) 0.3 %; Lymphocytes # (auto) 1.61 K/uL (1.20-3.40); Lymphocytes % (auto) 22.4 %; Mean Corpuscular Hemoglobin 29.9 pg (25.0-34.0); Mean Corpuscular Hgb Conc 34.7 g/dL (32.0-36.0); Mean Corpuscular Volume 86.3 fL (80.0-100.0); Mean Platelet Volume 10.1 fL (9.4-12.4); Monocytes # (auto) 0.73 K/uL (0.11-0.59); Monocytes % (auto) 10.1 %; Neutrophils # (auto) 4.67 K/uL (1.40-6.50); Neutrophils % (auto) 64.9 %; Platelet Count 205 K/uL (130-400); RDW Coefficient of Variation 12.9 % (11.5-14.5); RDW Standard Deviation 40.7 fL (36.4-46.3); Red Blood Count 4.61 M/uL (4.70-6.10)
[2023-10-18 06:55] LABS: BUN Creatinine Ratio 15.9 (10-20); Calcium 8.5 mg/dl (8.6-10.3); Chol HDL Ratio 2.4 (0-5); Creatinine Clr Calc Pharmacy 89.9 ml/min; Est GFR (African American) 77.5 ml/min; Est GFR (Non-African American) 66.9 ml/min; Magnesium 2.1 mg/dl (1.7-2.4); Potassium 4.1 mmol/L (3.5-5.1)
[2023-10-18 07:08] LABS: Estimated Average Glucose 117 mg/dl; Hemoglobin A1C 5.7 % (4.5-5.6)
[2023-10-18] MEDS: NIFEdipine EXTENDED REL 30 MG TABCR PO SCH (10:05)
[2023-10-18] MEDS: CHLORTHALIDONE 25 MG TAB PO SCH (10:05)
--- NOTE | 2023-10-18 10:47 | Electrocardiogram Report ---
Test Reason : Blood Pressure : */* mmHG Vent. Rate : 95 BPM Atrial Rate : 214 BPM P-R Int : * ms QRS Dur : 136 ms QT Int : 364 ms P-R-T Axes : * 44 -43 degrees QTcB Int : 457 ms Atrial flutter with variable A-V block Right bundle branch block Abnormal ECG No previous ECGs available Confirmed by Lam Barbour ([id number]) on 10/18/2023 10:47:44 AM Referred By: Confirmed By: Lam Barbour
--- NOTE | 2023-10-18 10:49 | Electrocardiogram Report ---
Test Reason : Blood Pressure : */* mmHG Vent. Rate : 84 BPM Atrial Rate : 86 BPM P-R Int : * ms QRS Dur : 136 ms QT Int : 412 ms P-R-T Axes : 92 13 -23 degrees QTcB Int : 486 ms Atrial flutter Right bundle branch block Possible Inferior infarct , age undetermined Cannot rule out Anterior infarct (cited on or before 17-Oct-2023) Abnormal ECG When compared with ECG of 17-Oct-2023 13:23, No significant change Confirmed by Lam Barbour ([id number]) on 10/18/2023 10:49:10 AM Referred By: Confirmed By: Lam Barbour
--- NOTE | 2023-10-18 10:50 | Cardiology Progress Note ---
Date of Service October 18, 2023 Assessment & Plan (1) Atrial flutter: (2) Atypical chest pain: (3) Hypertension: (4) S/P ablation of atrial fibrillation: (5) Paroxysmal atrial fibrillation: Plan ASSESSMENT/PLAN: 1. Atrial flutter: Was symptomatic. Underwent cardioversion on 10/17/2023, resulting in rate controlled atrial fibrillation. He inquired about atrial flutter recurring. If any recurrence, would consider atrial flutter ablation. Feels much better with resolution of atrial flutter. Continue anticoagulation for stroke risk reduction for at least 4 weeks, however indefinite anticoagulation seems appropriate at this time. 2. Atrial fibrillation s/p ablation (2020): Following cardioversion for atrial flutter, atrial fibrillation developed and did not convert with 200 J. He seems asymptomatic while in rate controlled atrial fibrillation. Discussed treatment options such as attempting another cardioversion, antiarrhythmic therapy, repeat ablation, or remaining in A-fib. Given that cardioversion was unsuccessful on 10/17/2023 and that he has had unsuccessful cardioversions in the past, did not recommend pursuing that currently as he is completely asymptomatic. Discussed following up with his primary theatrical rigger with [facility] soon after discharge to discuss long-term options. Continue anticoagulation for stroke risk reduction. 3. Hypertension: Blood pressure acceptable. No changes made at this time. 4. Chest pain: Atypical. Occurred at rest despite regular exertion. Likely related to atrial flutter as he was in atrial flutter at that time. No recurrence. High-sensitivity troponin negative x 4. 5. Disposition: If he is able to ambulate in the hallway without significant symptoms, can be discharged home from a cardiology perspective. Recommend close follow-up with his primary inspector aide/theatrical rigger through [facility]. He was asked to contact her office today to set up an appointment soon. Patient care communicated with primary hospitalist service and nursing staff. Any questions were answered. Admission and Anticipated Discharge Date Admission Date: October 17, 2023 Subjective Patient was seen earlier today. He feels very well. He feels better than on presentation. He denies chest pain, shortness of breath, syncope, near syncope, palpitations, edema, or bleeding. He had not yet ambulated in the hallway but was ambulating in his room without symptoms. His was seated at the bedside. Physical Exam Physical Exam: Gen.: No acute distress. Alert and oriented. HEENT: Anicteric sclera. Neck: No JVD. Cardiac: Irregularly irregular with normal rate. Normal S1-S2. No murmurs, rubs, or gallops. Pulmonary: Clear to auscultation bilaterally without wheezes, rales, or rhonchi. Abdomen: Soft, nontender, nondistended, with normoactive bowel sounds. No bruits noted. Extremities: 2+ radial pulses bilaterally. 2+ posterior tibialis pulses bilaterally. No edema or cyanosis. Psychiatric: Affect appears appropriate. Results & Data Vital Signs (Past 12 Hours) Vital Signs Temp Pulse Pulse Resp BP Pulse Ox O2 Del Method 10/18/23 07:30 50 L 10/18/23 07:16 36.6 C 58 L 19 117/75 96 Room Air 10/18/23 02:33 36.6 C 62 20 128/72 96 Room Air Laboratory Results Laboratory Results - last 24 hr 10/17/23 10/17/23 10/17/23 13:23 16:20 22:32 WBC 11.84 H RBC 5.19 Hgb 15.6 Hct 45.3 MCV 87.3 MCH 30.1 MCHC 34.4 RDW Std Deviation 40.5 RDW Coeff of Daniel 12.8 Plt Count 244 MPV 9.9 Immature Gran % (Auto) 0.3 Neut % (Auto) 85.3 Lymph % (Auto) 7.9 [place] % (Auto) 5.8 Eos % (Auto) 0.5 Baso % (Auto) 0.2 Neut # (Auto) 10.09 H Lymph # (Auto) 0.94 L [place] # (Auto) 0.69 H Eos # (Auto) 0.06 Baso # (Auto) 0.02 Immature Gran # (Auto) 0.04 PT 11.7 INR 1.1 APTT 28 PTT Ratio 1.0 Sodium 137 Potassium 3.4 L Chloride 101 Carbon Dioxide 28 Anion Gap 8 BUN 24 H Creatinine 1.25 Est Cr Clr Drug Dosing 81.4 Est GFR ( Amer) 68.6 Est GFR (Non-Af Amer) 59.2 BUN/Creatinine Ratio 19.2 Glucose 166 H Estimat Average Glucose Hemoglobin A1c Calcium 9.3 Magnesium 2.0 Total Bilirubin 0.7 AST 19 ALT 23 Alkaline Phosphatase 44 Troponin I High Sens 3.1 2.9 3.2 Total Protein 7.4 Albumin 4.7 Globulin 2.7 Albumin/Globulin Ratio 1.7 Triglycerides Cholesterol LDL Cholesterol, Calc VLDL Cholesterol, Calc HDL Cholesterol Cholesterol/HDL Ratio 10/18/23 06:00 WBC 7.20 RBC 4.61 L Hgb 13.8 L Hct 39.8 L MCV 86.3 MCH 29.9 MCHC 34.7 RDW Std Deviation 40.7 RDW Coeff of Daniel 12.9 Plt Count 205 MPV 10.1 Immature Gran % (Auto) 0.3 Neut % (Auto) 64.9 Lymph % (Auto) 22.4 [place] % (Auto) 10.1 Eos % (Auto) 2.2 Baso % (Auto) 0.1 Neut # (Auto) 4.67 Lymph # (Auto) 1.61 [place] # (Auto) 0.73 H Eos # (Auto) 0.16 Baso # (Auto) 0.01 Immature Gran # (Auto) 0.02 PT INR APTT PTT Ratio Sodium 140 Potassium 4.1 D Chloride 106 Carbon Dioxide 29 Anion Gap 5 BUN 18 Creatinine 1.13 Est Cr Clr Drug Dosing 89.9 Est GFR ( Amer) 77.5 Est GFR (Non-Af Amer) 66.9 BUN/Creatinine Ratio 15.9 Glucose 113 H Estimat Average Glucose 117 Hemoglobin A1c 5.7 H Calcium 8.5 L Magnesium 2.1 Total Bilirubin AST ALT Alkaline Phosphatase Troponin I High Sens 3.7 Total Protein Albumin Globulin Albumin/Globulin Ratio Triglycerides 76 Cholesterol 86 LDL Cholesterol, Calc 35 VLDL Cholesterol, Calc 15 HDL Cholesterol 36 Cholesterol/HDL Ratio 2.4 Diagnostic Findings Telemetry personally reviewed: Rate controlled atrial fibrillation since cardioversion in the ER. Labs reviewed from 10/18/2023 notable for stable renal function, normal high- sensitivity troponin. ECG personally reviewed 10/18/2023: Atrial fibrillation 69 bpm. Possible inferior infarct. Nonspecific T wave abnormality. Medications Administered Current Inpatient Medications Apixaban (Apixaban 5 Mg Tablet) 5 mg PO BID [place] Stop: 11/16/23 20:59 Last Admin: 10/18/23 10:05 Dose: 5 mg Chlorthalidone (Chlorthalidone 25 Mg Tab) 25 mg PO QAM [place] Stop: 11/17/23 08:59 Last Admin: 10/18/23 10:05 Dose: 25 mg Losartan Potassium (Losartan Potassium 50 Mg Tab) 100 mg PO [facility] Stop: 11/16/23 20:59 Last Admin: 10/17/23 21:08 Dose: 100 mg Magnesium Oxide (Magnesium Oxide 400 Mg Tab) 400 mg PO [facility] Stop: 11/16/23 20:59 Last Admin: 10/17/23 21:08 Dose: 400 mg Nifedipine (Nifedipine Extended Rel 30 Mg Tabcr) 30 mg PO DAILY [place] Stop: 11/17/23 08:59 Last Admin: 10/18/23 10:05 Dose: 30 mg Rosuvastatin Calcium (Rosuvastatin Calcium 5 Mg Tab) 5 mg PO [facility] Stop: 11/16/23 20:59 Last Admin: 10/17/23 21:08 Dose: 5 mg Sertraline HCl (Sertraline Hcl 50 Mg Tablet) 50 mg PO [facility] Stop: 11/16/23 20:59 Last Admin: 10/17/23 21:08 Dose: 50 mg PG Care Time/CCT Total # of Minutes Spent Total Time Spent with Patient: Total time spent is greater than 50% in coordination of care (as documented) at patient's floor/unit and/or counseling patient: Coding Level of Care Code 95096 SUB INP/OBS CARE 3/50MIN Diagnoses Atypical atrial flutter I48.92 Atrial flutter type: unspecified Atypical chest pain R07.89 Hypertension I10 S/P ablation of atrial fibrillation Z98.890; Z86.79 Paroxysmal atrial fibrillation I48.0 (1) Atrial flutter Atrial flutter type: unspecified Qualified Code(s): I48.92 - Unspecified atrial flutter
--- NOTE | 2023-10-18 12:49 | Discharge Summary ---
Date of Service October 18, 2023 Admission HPI Per Admitting Provider [place] Crooks is a 68 year old male with history of atrial fibrillation who presents to the ER with shortness of breath on exertion and chest pressure. Symptoms started yesterday with shortness of breath on exertion. Today he started getting mild chest pressure on exertion with associated increased heart rate therefore decided to come to the ER. While in the ER he started getting some chest pressure at rest without radiation, mild, substernal, no associated diaphoresis/nausea/shortness of breath at rest. EKG in the ER showed atrial flutter and despite good rate control appears to be symptomatic. He has a notabl e history of atrial fibrillation where he was asymptomatic. Successful ablation occurred in 2020 and he does not think he has been in a. fib since then. He has remained on Eliquis indefinitely and not missed any doses in the last 4 weeks. Admission Exam (Per Admitting) Constitutional .The patient is awake, alert and oriented 3, well developed and well nourished, normocephalic and atraumatic, lying in bed and in no acute distress. HEENT--PERRL, EOMI, mucous membranes and oropharynx mildly dry Neck--supple. No JVD. No bruits. Thyroid normal, trachea midline, no adenopathy. Heart--normal S1 and S2. No murmurs, rubs or gallops. Lungs--clear bilaterally, no respiratory distress, no accessory muscle use. Abdomen--normal bowel sounds and soft. Extremities--no cyanosis or clubbing. No edema. Dermatologic--normal skin turgor, normal color, no abnormal lymph nodes, no rash. Neurologic--cranial nerves II through XII grossly intact. Rheumatologic--normal range of motion. Psychiatric--normal affect. Discharge Data Consultations 10/17/23 14:45 ED Decision to Admit Stat 10/17/23 15:38 Consult Cardiology Routine Hospital Course (1) Atrial flutter: No longer in a flutter following cardioversion, but still in A fib with controlled HR Evaluated by cardiology, walking the hallway, no SOB or chest pain Plan is to discharge and follow up with cardiology outpatient (2) Chest pain, rule out acute myocardial infarction: No CAD history Chest pain most like due to atrial flutter rhythm even though well rate controlled However only occurred at rest since he came to the ER and relieved with nitroglycerin therefore will need to bring patient over night for observation TTE Trend troponins (3) History of atrial fibrillation: Plan HTN - continue losartan, chlorthalidone and nifedipine Hyperlipidemia - continue rosuvastatin Paroxysmal atrial fibrillation - continue Eliquis VTE Prophylaxis - Eliquis Diet - NPO pending cardioversion decision Disposition - observation to PCU Coding Level of Care Code 75660 INP/OBS DISCH >30 MIN Diagnoses Atypical atrial flutter I48.92 Atrial flutter type: unspecified Chest pain, rule out acute myocardial infarction R07.9 History of atrial fibrillation Z86.79 Time Spent (min) 35
--- NOTE | 2023-10-19 06:43 | Electrocardiogram Report ---
Test Reason : Blood Pressure : */* mmHG Vent. Rate : 79 BPM Atrial Rate : 211 BPM P-R Int : * ms QRS Dur : 126 ms QT Int : 410 ms P-R-T Axes : 95 29 -3 degrees QTcB Int : 470 ms Atrial flutter with variable A-V block Low voltage QRS Right bundle branch block Cannot rule out Inferior infarct (cited on or before 17-Oct-2023) Abnormal ECG When compared with ECG of 17-Oct-2023 14:19, No significant change Confirmed by Lam Barbour ([id number]) on 10/19/2023 6:43:30 AM Referred By: REFERRED SELF Confirmed By: Lam Barbour
--- NOTE | 2023-10-19 23:10 | Electrocardiogram Report ---
Test Reason : Blood Pressure : */* mmHG Vent. Rate : 91 BPM Atrial Rate : * BPM P-R Int : * ms QRS Dur : 94 ms QT Int : 488 ms P-R-T Axes : * 16 2 degrees QTcB Int : 600 ms Poor data quality, interpretation may be adversely affected Atrial fibrillation Low voltage QRS Cannot rule out Anterior infarct (cited on or before 17-Oct-2023) Nonspecific T wave abnormality Abnormal ECG When compared with ECG of 17-Oct-2023 14:32, Atrial fibrillation has replaced Atrial flutter Confirmed by Lam Barbour ([id number]) on 10/19/2023 11:10:18 PM Referred By: REFERRED SELF Confirmed By: Lam Barbour
--- NOTE | 2023-10-19 23:11 | Electrocardiogram Report ---
Test Reason : Blood Pressure : */* mmHG Vent. Rate : 69 BPM Atrial Rate : 394 BPM P-R Int : * ms QRS Dur : 102 ms QT Int : 450 ms P-R-T Axes : * 44 -8 degrees QTcB Int : 482 ms Atrial fibrillation Low voltage QRS Possible Inferior infarct , age undetermined Cannot rule out Anterior infarct (cited on or before 17-Oct-2023) Abnormal ECG When compared with ECG of 17-Oct-2023 17:32, No significant change Confirmed by Lam Barbour ([id number]) on 10/19/2023 11:10:50 PM Referred By: REFERRED SELF Confirmed By: Lam Barbour
== END 2023-10-18 14:40 | disposition home or self-care (01) ==
LOC: ED 13:13 → 4W 13:13 → SUATTDRO 15:31 → 4W 17:59